=== PATIENT | male | born 2000 | race Caucasian/White ===

== ENCOUNTER 2021-11-30 16:05 | Emergency (ER) | payer SELFPAY ==
[2021-11-30 17:55] LABS: CARBON DIOXIDE,CO2 24.7 mmol/L (21.0-32.0); POTASSIUM,K 3.7 mmol/L (3.5-5.1)
== END 2021-11-30 19:15 | disposition home or self-care (01) ==
LOC: MW.ED 16:05
DX: T59.6X1A Toxic effect of hydrogen sulfide, accidental (unintentional), initial encounter (principal); Z20.822 Contact with and (suspected) exposure to COVID-19; Y92.69 Other specified industrial and construction area as the place of occurrence of the external cause
CPT/HCPCS: 36415; 71045; 71045-26; 80053; 85025; 93005; 99285; U0002

== ENCOUNTER 2022-08-16 19:00 | Emergency (ER) | payer SELFPAY | END 2022-08-16 20:39 | disposition left against medical advice (07) | LOC: MW.ED 19:00 | DX: Z53.21 Procedure and treatment not carried out due to patient leaving prior to being seen by health care provider (principal) ==